=== PATIENT | female | born 1980 | race Caucasian/White ===

== ENCOUNTER 2017-02-28 21:53 | Emergency (ER) | payer BC ==
--- NOTE | ~2017-02-28 | CR18 ---
[facility] A Service of [facility] RADIOLOGY TEXT RESULTS PATIENT: YAMILET ROME LOCATION: SED : 82 UNIT #: [id number] AGE: [address]: VITOR CERVANTES SEX: F ORDER DR: [id number] [address] [address] [id number] MR#: [id number] #: [id number] NAME: YAMILET ROME. : 1980 SEX: F STUDY DATE/TIME: 02/28/2017 21:35 UNIT: SED ROOM: STUDY DESCRIPTION: CR Ankle 2 Views Rt Attending Physician: Vitor Cervantes Ordering Physician: Vitor Cervantes (Res) Primary Care Physician: Primary Care Physician No MEDICAL IMAGING REPORT This report is preliminary unless electronic signature is present. EXAM Right ankle, 02/28 INDICATIONS Pain and swelling on the lateral side since twisting injury today. FINDINGS AP and lateral views of the right ankle were obtained. There is lateral soft tissue swelling. No acute fracture or malalignment is seen. There is a plantar calcaneal spur. IMPRESSION Lateral soft tissue swelling without acute fracture. Dictated by... Ian Lopez Jr., M.D. THIS IS AN ELECTRONICALLY VERIFIED REPORT Ian Lopez Jr., M.D. at 03/01/2017 8:00 AM KRISSY/elijah TD: 02/28/2017 22:48 JOB #: [id number] MEDICAL IMAGING REPORT Page 1 of 1
[~2017-02-28 21:53] MED LIST: ALLEGRA PO; PREDNISONE PO
== END 2017-02-28 22:20 | disposition home or self-care (01) ==
LOC: SED 21:53
DX: S93.401A Sprain of unspecified ligament of right ankle, initial encounter (principal); J30.2 Other seasonal allergic rhinitis; Z79.899 Other long term (current) drug therapy; Z88.0 Allergy status to penicillin; X50.1XXA Overexertion from prolonged static or awkward postures, initial encounter; Y92.009 Unspecified place in unspecified non-institutional (private) residence as the place of occurrence of the external cause
CPT/HCPCS: 73600; 99283